=== PATIENT | female | born 1955 | race Caucasian/White ===

== ENCOUNTER → 2017-05-24 | Outpatient (CLI) | payer OTHER ==
[~2017-05-24] MED LIST: LEXA20TA PO; Z.0.NO CURRENT MEDS
[2017-05-24 07:54] LABS: ALBUMIN 3.8 GM/DL (3.4-5.0); AST (GOT) 34 U/L (15-37); BICARBONATE 31.5 MEQ/L (21.0-32.0); BLOOD UREA NITROGEN 20 MG/DL (7-18); CHLORIDE 103 MEQ/L (98-107); CHOLESTEROL 228 MG/DL (120-200); CREATININE 0.78 MG/DL (0.50-1.00); GLOMERULAR FILTRATION RATE 75 ML/MIN (>89); GLUCOSE,FASTING 92 MG/DL (74-99); SODIUM (NA) 140 MEQ/L (136-145)
[2017-05-24 08:20] LABS: ALKALINE PHOSPHATASE 125 U/L (45-117); ALT (GPT) 80 U/L (10-53); CHOLESTEROL/ HDL RATIO 4.47 RATIO; LDL CHOLESTEROL 150 MG/DL (0-99); TOTAL BILIRUBIN ADULT 0.6 MG/DL (0.2-1.0); TOTAL PROTEIN 7.3 GM/DL (6.4-8.2); TRIGLYCERIDES 137 MG/DL (42-150)
[2017-05-24 08:24] LABS: FOLATE GREATER THAN 20.0 NG/ML (3.1-17.5)
== END ==
LOC: CLAB 07:05
PROVIDERS: ATTEND Family Medicine
DX: Z00.00 Encounter for general adult medical examination without abnormal findings (principal); E78.5 Hyperlipidemia, unspecified
CPT/HCPCS: 36415; 80053; 80061; 82306; 82607; 82746; 84443

== ENCOUNTER → 2017-11-07 | Outpatient (CLI) | payer OTHER ==
[2017-11-07 09:26] LABS: ALBUMIN 3.9 GM/DL (3.4-5.0); ALKALINE PHOSPHATASE 125 U/L (45-117); ALT (GPT) 72 U/L (10-53); AST (GOT) 50 U/L (15-37); BLOOD UREA NITROGEN 17 MG/DL (7-18); CALCIUM 9.1 MG/DL (8.5-10.1); CREATININE 0.86 MG/DL (0.50-1.00); GLOMERULAR FILTRATION RATE 67 ML/MIN (>89); GLUCOSE,FASTING 92 MG/DL (74-99); TOTAL BILIRUBIN ADULT 0.4 MG/DL (0.2-1.0); TOTAL PROTEIN 7.2 GM/DL (6.4-8.2)
[2017-11-07 09:27] LABS: BICARBONATE 29.6 MEQ/L (21.0-32.0); CHLORIDE 108 MEQ/L (98-107); CHOLESTEROL 146 MG/DL (120-200); CHOLESTEROL/ HDL RATIO 2.78 RATIO; FREE T4 0.89 NG/DL (0.76-1.46); HDL CHOLESTEROL 52.4 MG/DL (40.0-60.0); LDL CHOLESTEROL 75 MG/DL (0-99); SODIUM (NA) 143 MEQ/L (136-145); TRIGLYCERIDES 95 MG/DL (42-150)
== END ==
LOC: CLAB 08:22
PROVIDERS: ATTEND Family Medicine
DX: R74.0 Nonspecific elevation of levels of transaminase and lactic acid dehydrogenase [LDH] (principal); E78.5 Hyperlipidemia, unspecified
CPT/HCPCS: 36415; 80053; 80061; 84439; 84443